=== PATIENT | male | born 1960 | race Caucasian/White ===

== ENCOUNTER 2019-06-22 16:54 | Observation (INO) | payer MEDICARE ==
[2019-06-22 17:20] LABS: #Eosinphils 0.2 thou/uL (0.0-0.7); #Lymphocytes 1.8 thou/uL (1.20-3.40); #Monocytes 0.6 thou/uL (0.11-0.59); #Neutrophils 5.7 thou/uL (1.40-6.50); %Basophils 0.3 % (0.0-1.0); %Eosinophils 1.9 % (0.0-10.0); %Lymphocytes 21.6 % (21.0-51.0); %Monocytes 7.5 % (0.0-10.0); %Neutrophils 68.7 % (42.0-75.0); Hemoglobin 18.5 g/dL (14.0-18.0); Mean Corpuscular HGB CONC 34.6 g/dL (32.0-36.0); Mean Corpuscular Hemoglobin 30.3 pg (27.0-31.0); Mean Corpuscular Volume 87.5 fL (78.0-98.0); Mean Platelet Volume 7.8 fL (7.4-10.4); Platelet Count 182 thou/uL (130-400); RBC Distribution Width 11.9 % (11.5-14.5); White Blood Cell (WBC) Count 8.2 thou/uL (4.8-10.8)
[2019-06-22] MEDS ORDERED: Aspirin 325 MG TAB ONE (17:20)
[2019-06-22] MEDS ORDERED: Aspirin Chewable 81 MG TAB ONE (17:21)
[2019-06-22 17:26] LABS: PTT 25.5 SEC (22.9-36.1); Prothrombin Time 13.1 SEC (12.0-14.7)
[2019-06-22 17:34] LABS: ALT (SGPT) 25 U/L (8-55); AST (SGOT) 15 U/L (5-34); Albumin 4.3 g/dL (3.4-4.8); Alkaline Phosphatase 149 U/L (40-110); Anion Gap 13 mmol/L (10-20); BUN (Urea Nitrogen) 16 mg/dL (8.4-25.7); Bilirubin, Total 0.7 mg/dL (0.2-1.2); Calc. Creatinine Clearance 0 mL/min (70-130); Calcium 9.6 mg/dL (7.8-10.44); Carbon Dioxide 27 mmol/L (23-31); Chloride 100 mmol/L (98-107); Estimated GFR-MDRD 66; Globulin 2.9 g/dL (2.4-3.5); Glucose 279 mg/dL (80-115); Protein, Total 7.2 g/dL (5.8-8.1); Sodium 136 mmol/L (136-145)
--- NOTE | 2019-06-22 17:38 | RAD ---
EXAM: CHEST ONE VIEW HISTORY: Chest pain and chest tightness. Shortness of breath. Rapid heart rate. COMPARISON: None FINDINGS: The cardiac silhouette and pulmonary vasculature is within normal limits. The lungs are clear. Mild d egenerative changes are seen in the spine. IMPRESSION: No acute cardiopulmonary process.
[2019-06-22] MEDS ORDERED: Nitroglycerin 2% Ointment 1 INCH/1 GM Packet ONE (18:13)
[2019-06-22] MEDS ORDERED: Acetaminophen 500 MG TAB ONE (18:23)
[2019-06-22] MEDS ORDERED: Dextrose 5% in Water 1,000 ML IV PRN (19:20)
[2019-06-22] MEDS ORDERED: HumaLOG 300 UNITS/3 ML VIAL SC PRN (19:20)
[2019-06-22] MEDS ORDERED: Dextrose 50% Abboject 50 ML SYRINGE SLOW IVP PRN (19:20)
[2019-06-22] MEDS ORDERED: Acetaminophen 650 MG Suppository PR PRN (19:45)
--- NOTE | 2019-06-22 19:52 | PDOC.HHP ---
Hospitalist HPI - History of Present Illness Left posterior shoulder pain History of Present Illness: Mr. Kowalski presents with complaints of left posterior/subscapular pain, described as spasming that started at approximately 15:00 today. He reports having similar pain when he had an OK in 09/2016. He states the discomfort is constant, and has eased from 7/10 to 5/10 in severity since arriving to the ED. In 09/2016, when he had an acute OK, he had a coronary artery stent placed. He states he was told another vessel was 50% occluded, and no further intervention was recommended for that. He has been lost to follow-up since 05/2017. The patient states he last saw his PCP in 01/2017. Per his he has taken himself off of his medications including his anti-hypertensives and insulin. He has Metformin that he takes on occasion when he feels his diet has not been as good. He states he wanted to control his diabetes through his diet. Does not check his glucose or blood pressure regularly at home. When he has checked it it has been in the 140s range. Reports having palpitations and shortness of breath x 2 days but no other associated symptoms. No chest pain, no cough, hemoptysis. Has not had any recent fevers, no lightheadedness or SETHI. All other ROS are negative. ED Course: EKG showed NSR, HR of 100, no ST changes or T wave abnormalities. Initial troponin negative. CXR negative. BP initially elevated at 211/119, has since improved to 170/106. Given tylenol 1 g, aspirin 324 mg and Nitro bid 1 inch in ED. Hospitalist ROS - Review of Systems Constitutional: denies: fever, chills, sweats, weakness, malaise, other Eyes: denies: pain, vision change, conjunctivae inflammation, eyelid inflammation, redness, other ENT: denies: ear pain, ear discharge, nose pain, nose discharge, nose congestion , mouth pain, mouth swelling, throat pain, throat swelling, other Respiratory: reports: SOB with excertion. denies: cough, dry, shortness of breath, hemoptysis, pleuritic pain, sputum, wheezing, other Cardiovascular: reports: palpitations. denies: chest pain, orthopnea, paroxysmal noc. dyspnea, edema, light headedness, other Gastrointestinal: denies: nausea, vomiting, abdominal pain, diarrhea, constipation, melena, hematochezia, other Genitourinary: denies: dysuria, frequency, incontinence, hematuria, retention, other Musculoskeletal: reports: shoulder pain (left posterior shoulder), back pain ( chronic back pain). denies: neck pain, arm pain, hand pain, leg pain, foot pain , other Skin: denies: rash, lesions, telly, bruising, other Neurological: denies: weakness, numbness, incoordination, change in speech, confusion, seizures, other Hospitalist History - Past Medical History Cardiac: reports: HTN, OK Heme/Onc: reports: Hemochromatosis (Lost to follow-up) Endocrine: reports: Diabetes - Past Surgical History Past Surgical History: reports: Appendectomy, Cholecystectomy, Total Knee Replacement, Tonsillectomy, Other (multiple back surgeries Shoulder surgery Bilateral knee surgeries, multiple) - Family History Family History: reports: no pertinent history - Social History Smoking Status: Never smoker Alcohol: reports: Rare Drugs: reports: none Living Situation: With Family Activity level: independent ambulation - Exam General Appearance: NAD Eye: PERRL, anicteric sclera ENT: normocephalic atraumatic, no oropharyngeal lesions, moist mucosa Neck: supple, symmetric, no lymphadenopathy Heart: RRR, no murmur, no gallops, no rubs Respiratory: CTAB, no wheezes, no rales, normal chest expansion, no tachypnea Gastrointestinal: soft, non-tender, non-distended, normal bowel sounds, no palpable masses, no guarding, no rigidity Extremities: no cyanosis, no clubbing, no edema Skin: normal turgor, no lesions, no rashes Neurological: cranial nerve grossly intact, no focal deficits Musculoskeletal: normal tone, normal strength, no muscle wasting Psychiatric: normal affect, normal behavior, A&O x 3 Hospitalist Results - Labs Result Diagrams: 06/22/19 17:01 06/22/19 17:01 Lab results: WBC 8.2 thou/uL (4.8-10.8) 06/22/19 17:01 Hgb 18.5 g/dL (14.0-18.0) H 06/22/19 17: Hct 53.4 % (42.0-52.0) H 06/22/19 17:01 MCV 87.5 fL (78.0-98.0) 06/22/19 17:01 Plt Count 182 thou/uL (130-400) 06/22/19 17:01 Neutrophils % 68.7 % (42.0-75.0) 06/22/19 17:01 Sodium 136 mmol/L (136-145) 06/22/19 17:01 Potassium 4.0 mmol/L (3.5-5.1) 06/22/19 17:01 Chloride 100 mmol/L (98-107) 06/22/19 17:01 Carbon Dioxide 27 mmol/L (23-31) 06/22/19 17:01 BUN 16 mg/dL (8.4-25.7) 06/22/19 17:01 Creatinine 1.13 mg/dL (0.7-1.3) 06/22/19 17:01 Glucose 279 mg/dL (80-115) H 06/22/19 17:01 Calcium 9.6 mg/dL (7.8-10.44) 06/22/19 17:01 Total Bilirubin 0.7 mg/dL (0.2-1.2) 06/22/19 17:01 AST 15 U/L (5-34) 06/22/19 17:01 ALT 25 U/L (8-55) 06/22/19 17:01 Alkaline Phosphatase 149 U/L (40-110) H 06/22/19 17:01 Troponin I Less than 0.010 ng/mL (< 0.028) 06/22/19 17:01 Serum Total Protein 7.2 g/dL (5.8-8.1) 06/22/19 17:01 Albumin 4.3 g/dL (3.4-4.8) 06/22/19 17:01 - Radiology Interpretation Chest x-ray Status: report reviewed by wa Hospitalist H&P A/P - Problem (1) Pain of left scapula Code(s): M89.8X1 - OTHER SPECIFIED DISORDERS OF BONE, SHOULDER Status: Acute (2) Palpitations Code(s): R00.2 - PALPITATIONS Status: Acute (3) Uncontrolled hypertension Code(s): I10 - ESSENTIAL (PRIMARY) HYPERTENSION Status: Chronic (4) Uncontrolled diabetes mellitus Code(s): E11.65 - TYPE 2 DIABETES MELLITUS WITH HYPERGLYCEMIA Status: Chronic Qualifiers: Diabetes mellitus type: type 2 (5) Noncompliance Code(s): Z91.19 - PATIENT'S NONCOMPLIANCE W OTH MEDICAL TREATMENT AND REGIMEN Status: Chronic (6) Hemochromatosis Code(s): E83.119 - HEMOCHROMATOSIS, UNSPECIFIED Status: Chronic (7) History of OK (myocardial infarction) Code(s): I25.2 - OLD MYOCARDIAL INFARCTION Status: Chronic (8) History of coronary artery stent placement Code(s): Z95.5 - PRESENCE OF CORONARY ANGIOPLASTY IMPLANT AND GRAFT Status: Chronic - Plan Plan: Continue to trend troponins, Add-on Mg+, TSH, BNP, lipid panel Obtain records from previous cath done in 09/2016. Continuous cardiac monitoring. Cardiology consult. Start daily ASA. NPO at midnight. Initiate ISS, check Hgb A1C Monitor BP, PRN meds to BP control. Iron studies UA/UCx CODE STATUS: FULL Surrogate Decision maker is his Virginia Kowalski
[2019-06-22 20:07] LABS: Iron 91 ug/dL (65-175); Iron Binding Capacity, Total 275 mcg/dL (261-462); Transferrin, Serum 220 mg/dL (163-344)
[2019-06-22] MEDS ORDERED: Nitroglycerin 0.4 MG TAB (25 Tab Bottle) PO PRN (20:12)
[2019-06-22 20:24] LABS: Ferritin 196.54 ng/mL (22-322); Thyroid Stimulating Hormone 1.1311 uIU/mL (0.35-4.94)
[2019-06-22] MEDS: Famotidine/PF 20 mg/2ml Vial SLOW IVP SCH (21:39)
[2019-06-22] MEDS: Sodium Chloride 0.9% 1,000 ML IV SCH (21:40)
[2019-06-22 21:55] LABS: Bacteria/HPF None Seen HPF (None Seen); Bilirubin Negative (Negative); Blood, Urine Negative (Negative); Clarity Clear (Clear); Glucose, Urine (Dipstick) Greater than 1000 mg/dL (Negative); Leukocyte Negative Leu/uL (Negative); Mucous/LPF Rare LPF (<2+); Nitrite Negative (Negative); Protein, Urine (Dipstick) 70 mg/dL (Neg-Trace); RBC/HPF 0-3 HPF (0-3); Squamous Epithelial 0-3 HPF (0-3); Urobilinogen Normal mg/dL (Less than 2); WBC/HPF 0-3 HPF (0-3)
[2019-06-22 21:56] LABS: Urine Culture Reflex No No
[2019-06-22 22:09] VITALS: BMI 25.6
[2019-06-23 05:23] LABS: #Basophils 0.1 thou/uL (0.0-0.2); #Eosinphils 0.2 thou/uL (0.0-0.7); #Lymphocytes 1.5 thou/uL (1.20-3.40); #Monocytes 0.7 thou/uL (0.11-0.59); #Neutrophils 4.3 thou/uL (1.40-6.50); %Basophils 0.8 % (0.0-1.0); %Eosinophils 2.4 % (0.0-10.0); %Lymphocytes 22.4 % (21.0-51.0); %Monocytes 10.3 % (0.0-10.0); Hemoglobin 16.1 g/dL (14.0-18.0); Mean Corpuscular HGB CONC 35.4 g/dL (32.0-36.0); Mean Corpuscular Hemoglobin 30.9 pg (27.0-31.0); Mean Corpuscular Volume 87.5 fL (78.0-98.0); Mean Platelet Volume 8.3 fL (7.4-10.4); Platelet Count 144 thou/uL (130-400); RBC Distribution Width 11.9 % (11.5-14.5); White Blood Cell (WBC) Count 6.7 thou/uL (4.8-10.8)
[2019-06-23 05:27] LABS: Hemoglobin A1c 10.2 % (4.0-6.0)
[2019-06-23 05:45] LABS: Anion Gap 12 mmol/L (10-20); BUN (Urea Nitrogen) 18 mg/dL (8.4-25.7); Calc. Creatinine Clearance 101 mL/min (70-130); Calcium 8.5 mg/dL (7.8-10.44); Carbon Dioxide 24 mmol/L (23-31); Cardiac Risk 6.5 (Less than 4.5); Chloride 105 mmol/L (98-107); Cholesterol 213 mg/dl (< 200 Desired); Estimated GFR-MDRD 85; Glucose 337 mg/dL (80-115); HDL Cholesterol 33 mg/dL (>60 Neg Risk); LDL Cholesterol, Calculated 142 mg/dL; Sodium 137 mmol/L (136-145); Triglycerides 191 mg/dL (Less than 150)
[2019-06-23] MEDS: Acetaminophen 325 MG TAB PO PRN (09:12)
[2019-06-23] MEDS: Aspirin 81 mg Enteric Coated Tablet PO SCH (09:12)
[2019-06-23] MEDS: Famotidine/PF 20 mg/2ml Vial SLOW IVP SCH (09:13)
[2019-06-23] MEDS: Sodium Chloride 0.9% 1,000 ML IV SCH (13:08)
[2019-06-23] MEDS ORDERED: Lisinopril 5 MG TAB PO SCH (13:32)
--- NOTE | 2019-06-23 13:35 | CON ---
DATE OF CONSULTATION: HISTORY OF PRESENT ILLNESS: The patient is a 59-year-old gentleman, who presented with discomfort behind his scapula. The patient has a long history of coronary artery disease. In 2017, he presented with a myocardial infarction. He was sent to a hospital in [place],where he underwent PTCA and stent placement. He also states that he had other significant lesions , which was treated medically. The patient was started on cardiac medications. Unfortunately, he stopped taking all of his medications including aspirin. The patient has not come for followup. He states he was in his usual state of health until the day prior to admission, he developed pain and discomfort below his scapula. He presented to the emergency room markedly hypertensive. The patient denies having any present discomfort. The patient did say he became dyspneic, but did not become diaphoretic. The patient has multiple cardiac risk factors. PAST MEDICAL HISTORY: 1. CAD. 2. Hypertension. 3. Dyslipidemia. 4. History rheumatic fever. 5. Diabetes mellitus. 6. Hemochromatosis. 7. Laureen Raza syndrome. PAST SURGICAL HISTORY: Cholecystectomy ,appendectomy. tonsillectomy and seven back surgeries. SOCIAL HISTORY: Nonsmoker. FAMILY HISTORY: No strong family history of heart disease. ALLERGIES: PENICILLIN. REVIEW OF SYSTEMS: Ten-point system otherwise unremarkable. PHYSICAL EXAMINATION: GENERAL: This is a well-developed gentleman, in no acute distress. VITAL SIGNS: His blood pressure 184/95. NECK: Showed no jugular venous distention. LUNGS: Clear to auscultation. HEART: Regular rate and rhythm. Normal S1 and S2. No murmurs. ABDOMEN: Nondistended. EXTREMITIES: Show no edema. VASCULAR: Radial pulses 2+. LABORATORY DATA: Sodium 137, potassium 4.0, chloride 105, bicarb 24, BUN 18, creatinine 0.91, and glucose 337. His white blood cell count is 6.7, hemoglobin 16.1, hematocrit 45.5, and platelets are 145. INR 1.0. EKG revealed normal sinus rhythm with Q-waves suggestive of previous inferior infarct. IMPRESSION AND PLAN: 1. Pain below his scapula, possibly an anginal equivalent. 2. History of percutaneous transluminal coronary angioplasty and stent placement. 3. Diabetes mellitus. 4. Hypertension. 5. Dyslipidemia. 6. Noncompliance. This gentleman presenting with markedly elevated blood pressure and pain under his scapula. The patient will undergo a stress test to evaluate for evidence of significant ischemia. The life-threatening consequence of this patient being noncompliant with lipid-lowering medication and aspirin have been explained to the patient. We would recommend he also be on angiotensin-converting enzyme inhibitor therapy to lower his blood pressure. We will follow this patient with you through his hospitalization. Job ID: [id number] MTDD
[2019-06-23] MEDS ORDERED: ADENOSINE 60 MG/20 ML VIAL ONE (14:31)
--- NOTE | 2019-06-23 16:28 | NM ---
NM Cardiac Stress W EF WF HISTORY: Chest pain. COMPARISON: None. FINDINGS: Examination is performed using 29.2 mCi of 90 9M technetium sestamibi on the stress and 10. 8 mCi on the resting exam. This shows a very small apical defect on the stress views which does appear to fill-in on the resting images. Wall motion: There is symmetric contractility to the ventricle. Left ventricular ejection fraction: The calculated left ventricular ejection fraction is 48%. IMPRESSION: 1. Suggestion of a tiny area of ischemic change in the apex of the heart. 2. Diminished left ventricular ejection fraction 48%. Please correlate with echocardiogram.
[2019-06-23] MEDS ORDERED: Communication Order-Pharmacy FS SCH (17:00)
--- NOTE | 2019-06-23 17:58 | PDOC.HOSPP ---
- Subjective Encounter Date: 06/23/19 Encounter Time: 17:50 Subjective: f/u for CAD and angina. Plan for heart cath in am 06/24/19. - Objective Vital Signs & Weight: Vital Signs (12 hours) Temp Pulse Resp BP Pulse Ox 06/23/19 13:06 84 06/23/19 11:44 98.1 F 84 16 177/92 H 98 06/23/19 07:40 97.4 F L 85 20 184/95 H 95 Weight Weight 183 lb 14.4 oz I&O: 06/22/19 06/23/19 06/24/19 06:59 06:59 06:59 Intake Total 936 Output Total 375 Balance 561 Result Diagrams: 06/23/19 04:45 06/23/19 04:45 Additional Labs: Accuchecks 06/23/19 06/22/19 11:49 21:46 POC Glucose 210 H 303 H Laboratory Tests 06/22/19 06/23/19 06/23/19 17:01 04:45 04:45 Hemoglobin A1c 10.2 H Triglycerides 191 H Cholesterol 213 H LDL Cholesterol, Calc 142 HDL Cholesterol 33 TSH 3rd Generation 1.1311 Radiology Reviewed by me: Yes (Echo - EF - 45-50%, diast dysfx) EKG Reviewed by me: Yes (Tele - SR) Hospitalist ROS - Medication Medications: Active Medications Generic Name Dose Route Start Last Admin Trade Name Freq PRN Reason Stop Dose Admin Acetaminophen 650 mg 06/22/19 19:45 06/23/19 09:12 Tylenol PO 650 mg Q4H PRN Administration Headache/Fever/Mild Pain (1-3) Aspirin 81 mg 06/23/19 09:00 06/23/19 09:12 Ecotrin PO 81 mg DAILY CARLY Administration Famotidine 20 mg 06/22/19 21:00 06/23/19 09:13 Pepcid SLOW IVP Not Given Q12HR CARLY Sodium Chloride 1,000 mls @ 65 mls/hr 06/22/19 19:45 06/23/19 13:08 Normal Saline 0.9% IV Not Given .[id number] CARLY Insulin Human Lispro 0 units 06/22/19 19:20 06/23/19 06:03 Humalog SC 4 units .BEDTIME SLIDING SC PRN Administration Bedtime Correctional Scale - Exam General Appearance: NAD, awake alert Eye: PERRL, anicteric sclera ENT: normocephalic atraumatic, no oropharyngeal lesions Neck: supple, symmetric, no JVD, no thyromegaly Heart: RRR, no murmur, no gallops, no rubs, normal peripheral pulses Respiratory: CTAB, no wheezes, no rales, no ronchi, normal chest expansion Gastrointestinal: soft, non-tender, non-distended, normal bowel sounds Extremities: no cyanosis, no clubbing, no edema Skin: normal turgor, no lesions Neurological: cranial nerve grossly intact, no new deficit Musculoskeletal: normal tone, normal strength, no muscle wasting Psychiatric: normal affect, A&O x 3 Hosp A/P (1) Chest pain Code(s): R07.9 - CHEST PAIN, UNSPECIFIED Status: Acute Plan: Hx of CAD but non-compliant with medication regimen, plan for heart cath in am, ASA/Lipitor/Lisinopril (2) Noncompliance Code(s): Z91.19 - PATIENT'S NONCOMPLIANCE W OTH MEDICAL TREATMENT AND REGIMEN Status: Chronic (3) Uncontrolled diabetes mellitus Code(s): E11.65 - TYPE 2 DIABETES MELLITUS WITH HYPERGLYCEMIA Status: Chronic Qualifiers: Diabetes mellitus type: type 2 Plan: Will need outpt Metformin at minimum for d/c, continue ISS (4) Uncontrolled hypertension Code(s): I10 - ESSENTIAL (PRIMARY) HYPERTENSION Status: Chronic Plan: Continue Lisinopril, titrate to optimal response, likely will benefit from B- darrian (5) HLD (hyperlipidemia) Code(s): E78.5 - HYPERLIPIDEMIA, UNSPECIFIED Status: Chronic Plan: Statin for home - Plan out of bed/ambulate, DVT proph w/SCDs Stable overall Plan for heart cath in am Continue ASA Continue Lisinopril Add Statin for home Add Metformin for home
[2019-06-23] MEDS: HumaLOG 300 UNITS/3 ML VIAL SC PRN (18:24)
[2019-06-23] MEDS: Lisinopril 5 MG TAB PO SCH (20:54)
[2019-06-23] MEDS: Famotidine 20 MG TAB PO SCH (20:54)
[2019-06-23] MEDS ORDERED: VASCEPA SCH (21:00)
[2019-06-23] MEDS ORDERED: Rosuvastatin 10 MG TAB PO SCH (21:00)
[2019-06-24] MEDS: Aspirin 81 mg Enteric Coated Tablet PO SCH (05:10)
[2019-06-24] MEDS: Lisinopril 5 MG TAB PO SCH (05:10)
[2019-06-24] MEDS: Famotidine 20 MG TAB PO SCH (05:10)
[2019-06-24] MEDS ORDERED: Sodium Chloride 0.9% 1,000 ML IV SCH (06:00)
[2019-06-24] MEDS ORDERED: Heparin (Artline) 1,000 ML ONE (07:08)
[2019-06-24] MEDS ORDERED: Midazolam HCl 2 mg/2 ml Vial ONE (07:09)
[2019-06-24] MEDS ORDERED: Morphine 2 MG/ML SYRINGE ONE (07:32)
[2019-06-24] MEDS ORDERED: Nitroglycerin 100MG/250ML BOT 0 ML ONE (07:46)
[2019-06-24] MEDS ORDERED: Nitroglycerin 2% Ointment 1 INCH/1 GM Packet ONE (07:46)
[2019-06-24] MEDS ORDERED: Nitroglycerin 4.9 GM Bottle ONE (07:52)
[2019-06-24] MEDS ORDERED: Acetaminophen/Codeine 30-300mg Tablet PO PRN ×2 (08:02)
[2019-06-24] MEDS ORDERED: Nitroglycerin 0.4 MG TAB (25 Tab Bottle) SL PRN (08:02)
[2019-06-24] MEDS ORDERED: Sodium Chloride 0.9% 200 ML IV PRN (08:02)
[2019-06-24] MEDS ORDERED: Ubidecarenone 50 MG CAP PO SCH (09:00)
[2019-06-24] MEDS: HumaLOG 300 UNITS/3 ML VIAL SC PRN (12:01)
[2019-06-24 12:07] VITALS: TEMP 97.7
[2019-06-24] MEDS ORDERED: Ondansetron PF 4 MG/2 ML Vial SLOW IVP SCH (13:00)
[2019-06-24] MEDS: Acetaminophen 325 MG TAB PO PRN (13:40)
--- NOTE | 2019-06-24 14:09 | DIS ---
DATE OF ADMISSION: 06/22/2019 DATE OF DISCHARGE: 06/24/2019 DISCHARGE DIAGNOSES: 1. Chest pain. 2. Coronary artery disease, chronic, medically managed. 3. Status post myocardial infarction with patent stent to left circumflex. 4. Hyperlipidemia. 5. Diabetes mellitus, type 2, uncontrolled. 6. Hypertension. CONSULTATIONS: Dr. Ni with Cardiology Service. PERTINENT LABORATORY AND X-RAY FINDINGS: Hemoglobin A1c 10.2. Magnesium level 1.5. Serum iron level 91, TIBC 275, transferrin 220 with ferritin 197. Troponin I negative x3. BNP 11. TSH 1.13. Total cholesterol 213, triglycerides 191, HDL 33, and LDL 142. CBC within normal limits. Portable chest x-ray dated 06/22/2019, showed no acute cardiopulmonary process. Cardiac catheterization dated 06/24/2019, showed diffuse disease of the left anterior descending with 70% stenosis of the first diagonal, circumflex 50% stenosis, and proximal RCA 60% stenosis. Estimated ejection fraction is 50%. 2D transthoracic echocardiogram dated 06/23/2019, showed ejection fraction of 45% to 50%. Diastolic dysfunction. Cardiolite stress test dated 06/23/2019, showed tiny area of ischemic change at the apex. Ejection fraction calculated at 48%. HOSPITAL COURSE: The patient was initially admitted after presenting with left upper thorax pain. The patient with known coronary artery disease, status post PTCA with cardiac stent placement in 2017. Serial cardiac biomarkers were negative x3 and metabolic survey was essentially unremarkable except for hyperglycemia and elevated hemoglobin A1c of 10.2. The patient with known history of diabetes mellitus type 2, hypertension, and hyperlipidemia, essentially untreated medically. The patient was initiated on aspirin therapy and evaluated by the Cardiology Service. Initial cardiac stress testing showed a small area of ischemic defect at the apex, at which point, the patient proceeded with cardiac catheterization showing diffuse disease without focal stenosis requiring intervention. Current recommendations include medical management and compliance with chronic medication regimen. The patient also recommended to initiate metformin 500 mg b.i.d. for uncontrolled diabetes. I have examined the patient at the time of discharge and discussed followup instructions. The patient verbalized understanding and in agreement and ready for discharge on 06/24/2019. DISCHARGE MEDICATIONS: 1. Enteric-coated aspirin 81 mg p.o. daily. 2. Lisinopril 5 mg p.o. b.i.d. 3. Metformin 500 mg p.o. b.i.d. 4. Crestor 10 mg p.o. at bedtime. 5. Coenzyme Q10 of 400 mg p.o. daily. FOLLOWUP: The patient may follow up with his primary care provider, Mouna Godwin, in [place], [place] within 7 days of discharge. The patient may follow up with Dr. Karl Ni with [facility] and to call his office for appointment, time, and date. CONDITION ON DISCHARGE: Stable. ACTIVITY: Ad-héctor. DIET: Heart healthy and ADA. CODE STATUS: Full. DISPOSITION: To home on 06/24/2019. Job ID: [id number]
[2019-06-24] MEDS ORDERED: Iopamidol 370 76% 100 ML VIAL ONE (14:24)
[2019-06-24] MEDS ORDERED: cloNIDine 0.1 MG TAB PO SCH (14:45)
[2019-06-24 16:04] VITALS: BP 149/68
== END 2019-06-24 16:22 | disposition home or self-care (01) ==
LOC: ERS 16:54 → 2SW 19:20
PROVIDERS: ADMIT Hospitalist; ATTEND Hospitalist
PROC: 4A023N7 Measurement of Cardiac Sampling and Pressure, Left Heart, Percutaneous Approach (ICD-10-PCS; principal; 2019-06-24)
PROC: B2111ZZ Fluoroscopy of Multiple Coronary Arteries using Low Osmolar Contrast (ICD-10-PCS; 2019-06-24)
DX: R07.9 Chest pain, unspecified (principal); I25.10 Atherosclerotic heart disease of native coronary artery without angina pectoris; I25.2 Old myocardial infarction; I10 Essential (primary) hypertension; E11.65 Type 2 diabetes mellitus with hyperglycemia; E78.5 Hyperlipidemia, unspecified; E83.119 Hemochromatosis, unspecified; Z91.14 Patient's other noncompliance with medication regimen; Z79.84 Long term (current) use of oral hypoglycemic drugs; Z88.0 Allergy status to penicillin; Z91.048 Other nonmedicinal substance allergy status; Z95.5 Presence of coronary angioplasty implant and graft; Z98.1 Arthrodesis status
CPT/HCPCS: 71045; 78452; 80048; 80061; 81001; 82728; 82962 ×3; 83036; 83540; 83735; 83880; 84484 ×2; 85025; 85610; 85730; 93005; 93017; 93306; 93458; 94760; 99285; A9500; C1769; 36415; 36416; 80053; 83550; 84443; 84466; 96361; 96374; 96375; 99152; G0378; J0153; J1644; J2250; J2270; J2405; Q9967; S0028

== ENCOUNTER 2019-11-18 16:17 | Outpatient (CLI) | payer MEDICARE, OTHER ==
[2019-11-18 17:05] LABS: #Basophils 0.1 thou/uL (0.0-0.2); #Eosinphils 0.2 thou/uL (0.0-0.7); #Lymphocytes 1.9 thou/uL (1.20-3.40); #Monocytes 0.8 thou/uL (0.11-0.59); #Neutrophils 8.2 thou/uL (1.40-6.50); %Basophils 0.7 % (0.0-1.0); %Eosinophils 1.8 % (0.0-10.0); %Monocytes 7.4 % (0.0-10.0); %Neutrophils 73.1 % (42.0-75.0); Hemoglobin 15.3 g/dL (14.0-18.0); Mean Corpuscular HGB CONC 34.8 g/dL (32.0-36.0); Mean Corpuscular Hemoglobin 31.7 pg (27.0-31.0); Mean Corpuscular Volume 91.2 fL (78.0-98.0); Platelet Count 174 thou/uL (130-400); RBC Distribution Width 11.6 % (11.5-14.5); Red Blood Cell (RBC) Count 4.81 mill/uL (4.70-6.10); White Blood Cell (WBC) Count 11.2 thou/uL (4.8-10.8)
[2019-11-18 17:27] LABS: Bacteria/HPF None Seen HPF (None Seen); Bilirubin Negative (Negative); Blood, Urine Negative (Negative); Clarity Clear (Clear); Glucose, Urine (Dipstick) 500 mg/dL (Negative); Leukocyte Negative Leu/uL (Negative); Nitrite Negative (Negative); Protein, Urine (Dipstick) 30 mg/dL (Neg-Trace); RBC/HPF 0-3 HPF (0-3); Squamous Epithelial None Seen HPF (0-3); Urobilinogen Normal mg/dL (Less than 2); WBC/HPF 0-3 HPF (0-3)
[2019-11-18 17:31] LABS: Anion Gap 14 mmol/L (10-20); BUN (Urea Nitrogen) 24 mg/dL (8.4-25.7); Calc. Creatinine Clearance 0 mL/min (70-130); Calcium 9.1 mg/dL (7.8-10.44); Carbon Dioxide 21 mmol/L (23-31); Chloride 105 mmol/L (98-107); Estimated GFR-MDRD 81; Glucose 218 mg/dL (80-115); Potassium 4.3 mmol/L (3.5-5.1); Sodium 136 mmol/L (136-145)
[2019-11-19 11:07] LABS: SARS-CoV-2 MS2 Positive; SARS-CoV-2 N Gene Negative; SARS-CoV-2 S Gene Negative; SARS-CoV-2 orf1ab Negative
--- NOTE | 2019-11-26 23:24 | EKG ---
Test Reason : Blood Pressure : / mmHG Vent. Rate : 079 BPM Atrial Rate : 079 BPM P-R Int : 154 ms QRS Dur : 086 ms QT Int : 378 ms P-R-T Axes : 058 021 062 degrees QTc Int : 433 ms Normal sinus rhythm Normal ECG When compared with ECG of 22-JUN-2019 16:58, No significant change was found Confirmed by Grecia ROLON ([id number]) on 11/26/2019 11:23:57 PM Referred By: BREE Confirmed By:Grecia ROLON
== END 2019-11-18 16:18 | disposition home or self-care (01) ==
LOC: LABBT 16:17
PROVIDERS: ATTEND Orthopaedic Surgery Hand Surgery
DX: Z01.818 Encounter for other preprocedural examination (principal); Z11.59 Encounter for screening for other viral diseases; S61.211A Laceration without foreign body of left index finger without damage to nail, initial encounter
CPT/HCPCS: 80048; 81001; 85025; 93005; U0003; 87635; 93010

== ENCOUNTER 2019-11-19 12:52 | Day surgery (SDC) | payer MEDICARE ==
[2019-11-18 16:46] VITALS: BMI 25.4
[2019-11-19] MEDS ORDERED: Clindamycin/D5W 600 mg/50 ml Premix Bag ONE (13:41)
[2019-11-19] MEDS ORDERED: PROPOFOL 200 MG/20 ML VIAL ONE (13:58)
[2019-11-19] MEDS ORDERED: Lidocaine 1% PF 5 ML VIAL ONE (13:58)
[2019-11-19] MEDS ORDERED: Morphine 2 MG/ML SYRINGE ONE (14:49)
[2019-11-19] MEDS ORDERED: Famotidine 20 MG TAB ONE (19:07)
[2019-11-19] MEDS ORDERED: Famotidine/PF 20 mg/2ml Vial ONE (19:08)
[2019-11-19] MEDS ORDERED: Ondansetron PF 4 MG/2 ML Vial ONE (19:08)
[2019-11-19] MEDS ORDERED: Scopolamine 1.5 mg/72 hour Patch ONE (19:09)
[2019-11-19] MEDS ORDERED: Thrombin 5000 UNITS/5 ML VIAL ONE (19:26)
[2019-11-19] MEDS ORDERED: Sodium Chloride 0.9% 10 ML ONE (19:26)
[2019-11-19] MEDS ORDERED: Bacitracin Zinc Ointment 30 gm TUBE ONE (19:26)
[2019-11-19] MEDS ORDERED: Bupivacaine PF 0.5% 30 ML VIAL ONE (19:26)
[2019-11-19] MEDS ORDERED: Fentanyl 100 MCG/2 ML VIAL ONE (19:28)
[2019-11-19] MEDS ORDERED: Labetalol HCl 100 MG/20 ML VIAL ONE (21:07)
[2019-11-19] MEDS ORDERED: Ketorolac Tromethamine 30 MG/ML VIAL ONE (21:20)
--- NOTE | 2019-11-21 07:13 | OP ---
DATE OF PROCEDURE: 11/19/2019 PREOPERATIVE DIAGNOSIS: Left index finger wound with possible tendon involved. POSTOPERATIVE DIAGNOSES: 1. Left index finger wound with friable edges required debridement. 2. Left index finger 5 mm (proximal 1/3rd) radial aspect central slip complete tear. 3. No exposed joint underneath the tear. 4. 1.0 cm radial retinaculum complete tear without joint involvement, but open with underlying fracture of impression type, 6 mm extra-articular underneath. 5. 2.0 cm lateral band distal radial aspect laceration complete. PROCEDURES PERFORMED: 1. Debridement of wound. 2. Debridement of material associated with open fracture. 3. Central slip repair, 1/3rd radial aspect distally. 4. Lateral band repair, 2 cm area. 5. Retinaculum repair, 1.0 cm area of radial aspect. ESTIMATED BLOOD LOSS: 10 mL. TOURNIQUET TIME: None. INDICATIONS: Patient's wound with tendon involvement where photographs taken by emergency department showing a gaping, missing lateral band section, unable to define further damage, but with negative radiographs felt the patient did not have a fracture, but did have wound with tendon involvement and it should be repaired. He did not have lack of tenodesis effect. DESCRIPTION OF PROCEDURE: After successful general endotracheal anesthesia, the limb was prepped and draped. The patient had the time-out done appropriately. We then opened up his incision, debrided the wound edges using tenotomy scissors, [place] blade, 11 blade knife, Adson's. Technique was excisional down to but not including the tendon and there were no complications. We then after performing debridement and inspecting the area, extended the incision 1 cm distal and saw we had a radial 1/3rd central slip tear that was complete with 3 mm of central slip distal, so it could be repaired. We also noticed that beginning here, the radial retinaculum was lacerated and from my primary central slip back to the level of the proximal 1/3rd of the lateral band on radial aspect. Also retinaculum was lacerated over a 1 cm area and once you added these 2 areas together, it would also mean reapproximating some of the lateral band when we repaired the retinaculum. We saw an impression fracture of probably 6 mm diameter extra-articular with no collateral ligament instability or laceration seen, as well as there was no instability of collateral ligament or laceration seen distally at the PIP. We then completed debridement of the fracture using the same instruments except we added a curette as per what we used and the technique used to debride the wound. Now, we irrigated with 3 L of normal saline with antibiotics inside and Pulsavac pressure. We obtained hemostasis, and began closure by repairing the central slip with 2 [id number] interrupted 4-0 Prolene sutures. We then used 4-0 Prolene interrupted pattern to repair the distal retinaculum until it came to a point where it ended and the only thing slightly distal to this and as much radial as it was the lateral band. Radial lateral band was repaired then with interrupted 4-0 Prolene RB-1 needle and this repair was without undue tension and stopped in the area where an intrinsic release would take place, with the same amount of triangular defect seen, intrinsic release seen after suturing of the lateral band and retinaculum. Tenodesis effect restored. The passive flexion was to 90 degrees without suture weakening and the patient had tourniquet deflated. He left the operating room after closing the wound with interrupted 5-0 nylon to the level of the midportion of proximal phalanx and then from there proximally with 4-0 nylon interrupted simple pattern. We injected with a total of 20 mL of 0.5% Marcaine, 15 before surgery and 5 afterwards. Bulky dressing was applied with a palmar splint with the MP joint in neutral. Job ID: [id number]
== END 2019-11-19 22:02 | disposition home or self-care (01) ==
LOC: SDC 12:52
PROVIDERS: ATTEND Orthopaedic Surgery Hand Surgery
PROC: 0JBK0ZZ Excision of Left Hand Subcutaneous Tissue and Fascia, Open Approach (ICD-10-PCS; principal; 2019-11-19)
PROC: 0LU807Z Supplement Left Hand Tendon with Autologous Tissue Substitute, Open Approach (ICD-10-PCS; 2019-11-19)
DX: S66.311A Strain of extensor muscle, fascia and tendon of left index finger at wrist and hand level, initial encounter (principal); S62.631B Displaced fracture of distal phalanx of left index finger, initial encounter for open fracture; E11.9 Type 2 diabetes mellitus without complications; I10 Essential (primary) hypertension; I25.10 Atherosclerotic heart disease of native coronary artery without angina pectoris; G89.29 Other chronic pain; Z79.82 Long term (current) use of aspirin; Z79.84 Long term (current) use of oral hypoglycemic drugs; Z79.899 Other long term (current) drug therapy; Z88.0 Allergy status to penicillin; Z91.048 Other nonmedicinal substance allergy status; Z95.5 Presence of coronary angioplasty implant and graft; Z96.652 Presence of left artificial knee joint; Z98.890 Other specified postprocedural states; W31.2XXA Contact with powered woodworking and forming machines, initial encounter
CPT/HCPCS: J1885; J2001; J2270; J2405; J2704; J3010; J3370; J3490; S0020; S0028

== ENCOUNTER 2024-10-21 07:10 | Day surgery (SDC) | payer MEDICARE ==
[2024-10-20 15:35] VITALS: BMI 25.1
[~2024-10-21 07:10] MED LIST: EPINEPHrine 0.3 MG in Ophthalmic Irrigation Solution 500 ML IRR SCH
[2024-10-21] MEDS ORDERED: Lidocaine 1% PF 5 ML VIAL ONE ×2 (07:26→08:53)
[2024-10-21] MEDS ORDERED: PROPOFOL 20 ML ONE (07:26)
[2024-10-21] MEDS ORDERED: Cyclopentolate 1% Opth Drop 2 ML BOT ONE (07:44)
[2024-10-21] MEDS ORDERED: PHENYLephrine 2.5% Ophth Soln 15 ml Bottle ONE (07:44)
[2024-10-21] MEDS ORDERED: Ondansetron PF 4 MG/2 ML Vial ONE (08:09)
[2024-10-21] MEDS ORDERED: Midazolam HCl 2 mg/2 ml Vial ONE (08:35)
[2024-10-21] MEDS ORDERED: Triamcinolone 40 MG/ML VIAL ONE (08:53)
[2024-10-21] MEDS ORDERED: Bupivacaine 0.75% 10 ML VIAL ONE (08:53)
[2024-10-21] MEDS ORDERED: Maxitrol 0.1% Opth Oint 3.5 GM TUBE ONE (08:53)
[2024-10-21] MEDS ORDERED: CEFAZOLIN 1 GM VIAL ONE (08:53)
[2024-10-21] MEDS ORDERED: Lidocaine 4% PF 5 ML AMP ONE (08:53)
== END 2024-10-21 10:10 | disposition home or self-care (01) ==
LOC: SDC 07:10
PROVIDERS: ATTEND Ophthalmology Retina Specialist
PROC: 08T53ZZ Resection of Left Vitreous, Percutaneous Approach (ICD-10-PCS; principal; 2024-10-21)
PROC: 08NF3ZZ Release Left Retina, Percutaneous Approach (ICD-10-PCS; 2024-10-21)
DX: H43.12 Vitreous hemorrhage, left eye (principal); Z95.5 Presence of coronary angioplasty implant and graft; Z96.652 Presence of left artificial knee joint; Z98.41 Cataract extraction status, right eye; Z90.49 Acquired absence of other specified parts of digestive tract; Z90.89 Acquired absence of other organs; Z88.0 Allergy status to penicillin; Z91.048 Other nonmedicinal substance allergy status; Z79.82 Long term (current) use of aspirin; Z79.02 Long term (current) use of antithrombotics/antiplatelets
CPT/HCPCS: 67041; J0171; J0690; J2250; J2405; J2704; J3301; J3490